=== PATIENT | female | born 1960 | race Caucasian/White ===

== ENCOUNTER 2016-07-07 11:27 | Emergency (ER) | payer OTHER ==
--- NOTE | 2016-07-07 11:56 | ED.PDOC ---
History of Present Illness - General Chief Complaint: Skin/Abrasion/Tear Stated Complaint: draining wound Time Seen by Provider: 07/07/16 11:46 Source: patient, RN notes reviewed, Vital Signs reviewed Exam Limitations: no limitations - History of Present Illness Initial Comments: Patient reports that she had a callous between her 4th & 5th toes for a long time. She decided to pull it off and did so without problem. After she noticed a knot on the bottom of her foot @ the pad of her 5th toe. A week ago she pulled her toes apart and a hole opened up, water came out and it is just not healing. No pain, redness or swelling, just a hole between her toes. Timing/Duration: week Severity: mild Location: feet Improving Factors: nothing Worsening Factors: nothing Associated Symptoms: denies symptoms Allergies/Adverse Reactions: Allergies NO KNOWN ALLERGY Allergy (Verified 07/07/16 11:54) Review of Systems - Review of Systems Constitutional: States: no symptoms reported Respiratory: States: no symptoms reported Cardiology: States: no symptoms reported Gastrointestinal/Abdominal: States: no symptoms reported Musculoskeletal: States: no symptoms reported Skin: States: see HPI Neurological: States: no symptoms reported Family Medical History - Family History Mother Family History: Unknown Living Status: Unknown Physical Exam - Physical Exam General Appearance: Alert, Comfortable, No apparent distress, Well Developed, Well Groomed, Well Hydrated, Well Nourished Respiratory: no respiratory distress Extremity: normal range of motion, non-tender, no pedal edema, normal capillary refill Skin Exam: other - Between 4th & 5th toes on her Right foot there is an open wound. Edges are macerated but nontender. No erythema, tenderness, induration or drainage. Skin Problem Location: other - foot Lymphatic: no adenopathy Progress - Progress Progress: 07/07/16 12:45 Discussed X-ray results and diagnosis with patient. Discussed signs of infection to watch out for. Discussed keeping area clean and dry and that it should gradually close/heal on own. - EKG/XRAY/CT XRAY: R foot Xray Comments: No acute changes per Radiology Departure - Departure Clinical Impression: Open wound of foot Time of Disposition: 12:48 Disposition: Discharge to Home or Self Care Condition: Good Departure Forms: ED Discharge - Pt. Copy, Patient Portal Self Enrollment Diet: resume usual diet Activity: walking as tolerated
[2016-07-07 11:57] VITALS: BP 106/71; TEMP 97.3; O2SAT 95
--- NOTE | 2016-07-07 12:37 | RAD ---
Two view right foot. Indication: Open, draining wound between 4th 5th toes Comparison: None Impression: No acute fracture, malalignment, or definitive findings of osteomyelitis. No appreciable subcutaneous emphysema. If high clinical concern for osteomyelitis, correlation with MRI recommended. Mild talonavicular joint osteoarthritis. Calcaneal spurring Achilles tendon insertion and plantar fascia origin. Small os navicular bone with mild adjacent spurring of the medial margin navicular bone. Electronically signed by: Checo Alvarado MD 07/07/2016 12:35
== END 2016-07-07 12:53 | disposition home or self-care (01) ==
LOC: ER 11:27
DX: S91.301A Unspecified open wound, right foot, initial encounter (principal); X58.XXXA Exposure to other specified factors, initial encounter

== ENCOUNTER → 2016-07-07 | Outpatient (CLI) | payer OTHER ==
--- NOTE | 2016-07-07 14:04 | MAM ---
EXAM DESCRIPTION: MAMMO BREAST SCREENING BILATERAL CAD, images were reviewed with CAD technology, R2 computer-aided detection. CLINICAL HISTORY: [facility]. COMPARISON: 2012. FINDINGS: Routine views are obtained. Glandular tissue is near completely fatty involuted. No dominant mass, architectural distortion or clustered microcalcification.. IMPRESSION: Benign exam. BIRAD CATEGORY: 2 BENIGN RECOMMENDATIONS: FOLLOW-UP: Routine screening mammogram in one year. According to the [employer], yearly mammograms are recommended starting at age 40 and continuing as long as a woman is in good health. Any breast change noted on a breast self-exam should be reported promptly to the patient's healthcare provider. Breast MRI is recommended for women with an approximately 20-25% or greater lifetime risk of breast cancer, including women with a strong family history of breast or ovarian cancer and women who have been treated for Hodgkin's disease. Electronically signed by: Luda Dvais 07/07/2016 14:02
== END ==
LOC: MAMMO 09:51
PROVIDERS: ATTEND Emergency Medicine
DX: Z12.31 Encounter for screening mammogram for malignant neoplasm of breast (principal)
CPT/HCPCS: 77052; G0202